=== PATIENT | female | born 1960 | race Caucasian/White ===

== ENCOUNTER → 2016-11-03 | Outpatient (REF) ==
[~2016-11-03] MED LIST: ADVIL200 MG PO; IBU600 MG PO; PERCOCET 325 MG1 TA2 PO
== END ==
LOC: WSOH 08:00
DX: Z01.89 Encounter for other specified special examinations (principal)

== ENCOUNTER 2017-02-10 05:38 | Day surgery (SDC) | payer BC ==
[~2017-02-10] VITALS: Ht 165.1 cm; Wt 49.9 kg
[2017-02-10] VITALS (11 sets, daily range): BP systolic 91–118; BP diastolic 52–67; PULSE 36–68; TEMP 97.4–98.8
[2017-02-10] MEDS ORDERED: ADVIL200 MG PO (06:40)
[2017-02-11 06:24] VITALS: BP 114/63; PULSE 70; TEMP 97.6
[2017-02-11] MEDS ORDERED: PERCOCET 325 MG1 TA2 PO (06:37)
[2017-02-11] MEDS ORDERED: IBU600 MG PO (06:37)
== END 2017-02-11 07:35 | disposition home or self-care (01) ==
LOC: SDCO 05:38 → SURG 07:30 → EDSTATUS 07:30 → OB 08:35 → INPTSU 08:35 → SDCO 02-11 07:35 → OB 02-11 07:35
DX: N81.11 Cystocele, midline (principal); N94.11 Superficial (introital) dyspareunia; N94.12 Deep dyspareunia
CPT/HCPCS: OP; A4315; J0690; J1100; J2250; J2405; J2704; J7120

== ENCOUNTER → 2017-08-11 | Outpatient (CLI) | payer BC | LOC: MC.RAD 08-04 14:40 | DX: Z12.31 Encounter for screening mammogram for malignant neoplasm of breast (principal) ==